=== PATIENT | female | born 1950 | race Caucasian/White ===

== ENCOUNTER → 2017-12-31 | Day surgery (SDC) | payer OTHER, MEDICARE ==
--- NOTE | 2018-01-01 15:34 | PATH ---
Surgical Pathology Report Patient Name: KEON INFANTE [facility]. Rec. #: [id number] /Age/Gender: 1950 (Age: 67) / F Account: [id number] Location: [facility] Taken: 12/31/2017 Received: 12/31/2017 Reported: 01/03/2018 Physicians: Alejandro Sinha M.D. Specimen(s) Received 0.8AM COMPLEX MASS 9:30 LT BREAST 3-4 FN Clinical History Ultrasound findings: Suspicious Final Diagnosis 0.8 CM COMPLEX MASS 9:30, LEFT BREAST 3 -4 FN, BIOPSY: PREDOMINANTLY FATTY TISSUE AND SCANTY BREAST DUCTS SHOWING FAT NECROSIS, RECENT HEMORRHAGE AND FOCAL LYMPHOCYTIC INFILTRATE. Note: Reason for amended report: per Dr. Sinha's office ([place], [place]), the correct specimen site is "left breast". Electronically Signed Ellis Brugos M.D. Amendments Amended: 01/03/2018 Previous Signout Date: 01/01/2018 Gross Description Received in formalin labeled "left breast biopsy 9:30, 3-4 cm fn," is a 1.1 x 1.1 x 0.2 cm aggregate of multiple martínez-yellow, irregular to cylindrical portions of fibroadipose tissue. The formalin is filtered and the specimen is entirely submitted in one cassette. Time to formalin fixation: 2 minutes Total formalin fixation time: Approximately 9 hours. /12/31/2017 saudi12/31/2017
== END | disposition home or self-care (01) ==
LOC: FRADUS-SUR 12:51
PROVIDERS: ATTEND Surgery Surgical Oncology
PROC: 0HBU3ZX Excision of Left Breast, Percutaneous Approach, Diagnostic (ICD-10-PCS; principal; 2017-12-31)
DX: N64.1 Fat necrosis of breast (principal); N63.22 Unspecified lump in the left breast, upper inner quadrant
CPT/HCPCS: 19083; 77065-TC; 87899; 88305-TC; A4648